=== PATIENT | male | born 1970 | race Caucasian/White ===

== ENCOUNTER → 2021-03-13 | Outpatient (CLI) | payer OTHER ==
--- NOTE | 2021-03-13 13:43 | CONS ---
CONSULTATION DATE OF SERVICE: 03/13/2021 This 50-year-old gentleman has [facility] for obstructive sleep apnea-hypopnea syndrome. HISTORY OF PRESENT ILLNESS/SLEEP-WAKE EVALUATION: The patient was diagnosed with obstructive sleep apnea about 20 years ago. He was started on treatment with CPAP, used CPAP for a while, and then he stopped using it. At the present time his sleep schedule is from 10 p.m. to 7 or 7:30 a.m. on weekdays and from 11 p.m. or midnight until between 8 and 10 a.m. on weekends. He does have problems with falling asleep, has TV set in bedroom. He usually sleeps on the side position. He snores, has episodes of stopped breathing during sleep. He wakes up from sleep 5 times with up to 3 episodes of nocturia. No history of hypnagogic hallucinations, sleep paralysis or cataplexy. In the morning the patient wakes up tired, has difficulties paying attention, falling asleep during the day. He takes naps up to 4 times a day. [place] Sleepiness Scale is in very high range at 16. He has problems with memory, concentration, depression, anxiety, sexual dysfunction. PAST MEDICAL HISTORY: Positive for hypertension, acid reflux, right ankle problems. History of asthma. PAST SURGICAL HISTORY: Vasectomy, swelling of legs. CURRENT MEDICATIONS: 1. [place] 7.5/325 mg three times a day. 2. Lisinopril 20 mg once a day. 3. Gabapentin 600 mg 3 times a day. 4. Omeprazole 20 mg once a day. 5. Lasix 40 mg once a day. 6. 250 mg once a day. SOCIAL HISTORY: Positive for smoking 35 pack/years. Patient continues to smoke. Alcohol consumption: None. FAMILY HISTORY: Heart problems. REVIEW OF SYSTEMS: Multiple awakenings from sleep, sleepiness during the day. Patient takes 3 or 4 naps a day. No fevers. No double vision. No recent chest pain. No shortness of breath. No abdominal pain. No bleeding episodes. No blood in the urine. No seizure episodes. PHYSICAL EXAMINATION: GENERAL: Pleasant gentleman without distress. VITAL SIGNS: BP 148/82, HR 64, RR 15, height 5 feet 10 inches, weight 343.6, temperature 97.4, oxygen saturation at room air 96%. HEENT: SANTO, EOMI, evaluation of oropharynx showed tongue protrudes midline. Small oropharyngeal airspace. Wide pillars. Moderately low soft palate; about Mallampati III. NECK: Supple, no JVD. Thyroid is not palpable. Neck is extremely wide at 20-1/2 inches in circumference. LUNGS: Clear to percussion and to auscultation. Good air exchange. No wheezing or rhonchi. HEART: S1, S2 regular. No murmurs, gallops, or rubs. ABDOMEN: Obese. EXTREMITIES: One plus ankle edema. RETORT FIRER: Awake, alert, and oriented X3. Cranial nerves 2 to 7 intact. There is no fasciculation or atrophy. noted. No focal deficits observed. IMPRESSION: 1. Snoring, multiple awakenings from sleep, small oropharyngeal airspace, large neck, 20-1/2 inches in circumference, sleepiness, patient takes 3 or 4 naps a day, history of obstructive sleep apnea in the past; obstructive sleep apnea-hypopnea syndrome, probably severe range. 2. Obesity. BMI 49.2. 3. Hypertension. 4. Patient is on opiates for pain, which may increase risk for central sleep apnea also. 5. History of asthma. 6. Smoker for 35 pack/years; continued smoking. 7. Acid reflux. 8. Right ankle problems with pain. 9. Status post vasectomy. 10.Swelling of legs. PLAN: 1. Polysomnography for evaluation of patient's breathing during sleep. 2. CPAP/BiPAP titration if sleep study confirms obstructive sleep apnea-hypopnea syndrome. 3. Preferable position during sleep on the side. 4. No driving if patient feels any sleepiness. 5. I will see patient for follow up visit to explain results of testing and following plan. Thank you very much for referring this patient for consultation. Sincerely, Marco Rodriguez MD, PhD, FAASM Diplomat of [place] Sleep Medicine Board of [place] [facility] [place] MMODL / AMADON: [id number] /
== END | disposition home or self-care (01) ==
LOC: SLEEP 11:08
PROVIDERS: ATTEND Internal Medicine
DX: G47.33 Obstructive sleep apnea (adult) (pediatric) (principal); E66.9 Obesity, unspecified; Z68.42 Body mass index [BMI] 45.0-49.9, adult; I10 Essential (primary) hypertension; Z87.09 Personal history of other diseases of the respiratory system; F17.210 Nicotine dependence, cigarettes, uncomplicated; K21.9 Gastro-esophageal reflux disease without esophagitis; M25.572 Pain in left ankle and joints of left foot; Z98.52 Vasectomy status; R22.43 Localized swelling, mass and lump, lower limb, bilateral

== ENCOUNTER → 2022-07-22 | Outpatient (CLI) | payer MEDICARE, OTHER ==
[2022-07-22 16:32] VITALS: BP 132/77; PULSE 73; TEMP 98.3; BMI 49.0
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
== END ==
LOC: BARWHC3 15:32
PROVIDERS: ATTEND Surgery Plastic and Reconstructive Surgery
DX: E66.01 Morbid (severe) obesity due to excess calories (principal); J44.9 Chronic obstructive pulmonary disease, unspecified; I10 Essential (primary) hypertension; F17.200 Nicotine dependence, unspecified, uncomplicated; Z68.42 Body mass index [BMI] 45.0-49.9, adult; Z88.1 Allergy status to other antibiotic agents; Z91.02 Food additives allergy status; Z88.0 Allergy status to penicillin; Z91.013 Allergy to seafood; Z88.8 Allergy status to other drugs, medicaments and biological substances
CPT/HCPCS: 99212

== ENCOUNTER 2022-08-31 07:34 | Day surgery (SDC) | payer MEDICARE, OTHER ==
[2022-08-26 15:52] VITALS: BMI 49.2
[~2022-08-31 07:34] MED LIST: LACTATED RINGERS 1,000 ML IV SCH
[2022-08-31 07:57] VITALS: TEMP 97.9
--- NOTE | 2022-08-31 07:58 | P.GSHP ---
History of Present Illness H&P Date: 08/31/22 CHIEF COMPLAINT: GERD HISTORY OF PRESENT ILLNESS: The patient is a 52-year-old male who presents reports gastroesophageal reflux disease. Upper endoscopy was offered for further evaluation and management. PAST MEDICAL HISTORY: Please see list. PAST SURGICAL HISTORY: Please see list. MEDICATIONS: Please see list. ALLERGIES: Please see list. SOCIAL HISTORY: No illicit drug use FAMILY HISTORY: No reports of Crohn disease or ulcerative colitis. REVIEW OF ORGAN SYSTEMS: CONSTITUTIONAL: No reports of fevers or chills. GI: Denies any blood in stools or constipation. PHYSICAL EXAM: VITAL SIGNS: Stable GENERAL: Well-developed and pleasant in no acute distress. HEENT: No scleral icterus. Extraocular movements grossly intact. Moist buccal mucosa. NECK: Supple without lymphadenopathy. CHEST: Unlabored respirations. Equal bilateral excursions. CARDIOVASCULAR: Regular rate and rhythm. Distal 2+ pulses. ABDOMEN: Soft, nondistended. MUSCULOSKELETAL: No clubbing, cyanosis, or edema. ASSESSMENT: 1. Gastroesophageal reflux disease PLAN: 1. Recommend proceeding with an upper endoscopy Past Medical History Past Medical History: COPD, GERD/Reflux, Hypertension, Sleep Apnea/CPAP/BIPAP Additional Past Medical History / Comment(s): shortness of breath, emphysema, borderline high A1C, uses CPAP History of Any Multi-Drug Resistant Organisms: None Reported Past Surgical History: Appendectomy, Heart Catheterization, Orthopedic Surgery Additional Past Surgical History / Comment(s): several right ankle surgeries, back stimulator Dec 2021, VASECTOMY, Past Anesthesia/Blood Transfusion Reactions: No Reported Reaction Smoking Status: Current every day smoker - Past Family History Mother Family Medical History: No Reported History Medications and Allergies Home Medications Medication Instructions Recorded Confirmed Type Lisinopril [Prinivil] 20 mg PO DAILY 09/14/13 08/26/22 History Budesonide-Formot 160-4.5 Mcg 2 puff INHALATION BID 02/06/14 08/26/22 History [Symbicort 160-4.5 Mcg Inhaler] tadalafiL [Cialis] 5 mg PO DAILY PRN 02/06/14 08/26/22 History Albuterol Inhaler [Ventolin Hfa 1 - 2 puff INHALATION Q6H PRN 07/22/22 08/26/22 History Inhaler] Furosemide [Lasix] 40 mg PO DAILY 07/22/22 08/26/22 History Gabapentin 600 mg PO TID 07/22/22 08/26/22 History HYDROcodone/APAP 10-325MG [[place] 1 tab PO TID PRN 07/22/22 08/26/22 History 10-325] Omeprazole 40 mg PO DAILY 07/22/22 08/26/22 History Allergies Allergy/AdvReac Type Severity Reaction Status Date / Time cefaclor [From [facility]] Allergy SEE NOTE Verified 08/31/22 07:48 Fish Containing Products Allergy Anaphylaxis Verified 08/31/22 07:48 [Fish] Penicillins AdvReac SEE NOTE Verified 08/31/22 07:48 Surgical - Exam Vital Signs Temp Pulse Resp BP Pulse Ox 97.9 F 57 L 19 132/60 95 08/31/22 07:53 08/31/22 07:53 08/31/22 07:53 08/31/22 07:53 08/31/22 07:53
[2022-08-31] MEDS ORDERED: KETAMINE 10 MG/ML 20 ML VIAL ONE (08:06)
[2022-08-31] MEDS ORDERED: LIDOCAINE 2% INJ 20 MG/ML (2 ML VIAL) ONE (08:06)
[2022-08-31] MEDS ORDERED: PROPOFOL 10 MG/ML 20 ML VIAL IV ONE (08:06)
[2022-08-31] MEDS ORDERED: MIDAZOLAM 2 MG/2 ML VIAL ONE (08:06)
--- NOTE | 2022-08-31 08:45 | P.PCN ---
Date of Procedure: 08/31/22 Description of Procedure: PREOPERATIVE DIAGNOSIS: Gastroesophageal reflux disease. Morbid obesity. POSTOPERATIVE DIAGNOSIS: Gastroesophageal reflux disease. Morbid obesity. Gastritis. Presbyesophagus OPERATION: Esophagogastroduodenoscopy with biopsies along antrum and duodenal SURGEON: Cynthia Al MD ANESTHESIA: MAC. INDICATIONS: The patient is a 52-year-old male who presents with reflux disease. Benefits and risks of the procedure were described. Informed consent was obtained. DESCRIPTION: The patient was brought into the endoscopy suite and laid in the left lateral decubitus position. An Olympus gastroscope was passed along the posterior oropharynx down to the distal esophagus where the squamocolumnar junction was encountered at 40 cm from the incisors. The stomach was entered and no bile reflux was found. Additional findings are listed below. Biopsies with cold forceps were obtained of the antrum. The first through third portion of the duodenum was examined. Retroflexion of the scope confirmed Hill grade 2 lower esophageal valve. The squamocolumnar junction demonstrated LA grade A erosive esophagitis. The stomach was desufflated. The patient tolerated the procedure well. FINDINGS: Squamocolumnar junction 45 cm from the incisors. Diaphragmatic hiatus at 45 cm. Hill grade 2 lower esophageal valve. LA grade A erosive esophagitis. Biopsies obtained of duodenum Chronic gastritis with moderate inflammation and biopsies obtained Presbyesophagus RECOMMENDATIONS: Upper endoscopy as needed. Plan - Discharge Summary Discharge Rx Participant: No New Discharge Prescriptions: Continue Lisinopril [Prinivil] 20 mg PO DAILY tadalafiL [Cialis] 5 mg PO DAILY PRN PRN Reason: E.D. Budesonide-Formot 160-4.5 Mcg [Symbicort 160-4.5 Mcg Inhaler] 2 puff INHALATION BID Gabapentin 600 mg PO TID Furosemide [Lasix] 40 mg PO DAILY Omeprazole 40 mg PO DAILY HYDROcodone/APAP 10-325MG [[place] 10-325] 1 tab PO TID PRN PRN Reason: Pain Albuterol Inhaler [Ventolin Hfa Inhaler] 1 - 2 puff INHALATION Q6H PRN PRN Reason: Shortness Of Breath Discharge Medication List Lisinopril [Prinivil] 20 mg PO DAILY 09/14/13 [History] Budesonide-Formot 160-4.5 Mcg [Symbicort 160-4.5 Mcg Inhaler] 2 puff INHALATION BID 02/06/14 [History] tadalafiL [Cialis] 5 mg PO DAILY PRN 02/06/14 [History] Albuterol Inhaler [Ventolin Hfa Inhaler] 1 - 2 puff INHALATION Q6H PRN 07/22/22 [History] Furosemide [Lasix] 40 mg PO DAILY 07/22/22 [History] Gabapentin 600 mg PO TID 07/22/22 [History] HYDROcodone/APAP 10-325MG [[place] 10-325] 1 tab PO TID PRN 07/22/22 [History] Omeprazole 40 mg PO DAILY 07/22/22 [History] [facility] [facility] [facility] Patient Instructions/Handouts: *Surgery [facility] - (Anesthesia) Discharge Instructions Outpatient Surgery, Gastritis (DC), Upper Endoscopy (DC) Discharge Disposition: HOME SELF-CARE
[2022-08-31 09:23] VITALS: BP 120/73; PULSE 55; RESP 18
== END 2022-08-31 09:29 | disposition home or self-care (01) ==
LOC: ORWHC2ENDO 07:34
PROVIDERS: ATTEND Surgery Plastic and Reconstructive Surgery
DX: D72.820 Lymphocytosis (symptomatic) (principal); K21.00 Gastro-esophageal reflux disease with esophagitis, without bleeding; K29.50 Unspecified chronic gastritis without bleeding; K22.89 Other specified disease of esophagus; E66.01 Morbid (severe) obesity due to excess calories; F17.200 Nicotine dependence, unspecified, uncomplicated; J44.9 Chronic obstructive pulmonary disease, unspecified; I10 Essential (primary) hypertension; G47.30 Sleep apnea, unspecified; Z90.49 Acquired absence of other specified parts of digestive tract; Z79.899 Other long term (current) drug therapy; Z79.51 Long term (current) use of inhaled steroids; Z88.1 Allergy status to other antibiotic agents
CPT/HCPCS: 43239; J2250; J2704; J2001; 88305; 88342

== ENCOUNTER → 2022-09-28 | Outpatient (CLI) | payer MEDICARE, OTHER ==
[2022-09-28 11:56] VITALS: BMI 48.0
== END ==
LOC: BARWHC3 08:53
PROVIDERS: ATTEND Surgery Plastic and Reconstructive Surgery
DX: E66.01 Morbid (severe) obesity due to excess calories (principal); Z71.3 Dietary counseling and surveillance; Z88.1 Allergy status to other antibiotic agents; Z88.0 Allergy status to penicillin; Z91.013 Allergy to seafood; F17.200 Nicotine dependence, unspecified, uncomplicated; Z68.42 Body mass index [BMI] 45.0-49.9, adult
CPT/HCPCS: 97804